=== PATIENT | male | born 1985 | race Two or more races ===

== ENCOUNTER 2020-12-15 15:41 | Inpatient (IN) | payer OTHER ==
[~2020-12-15] VITALS: Ht 185.4 cm; Wt 117.8 kg
[2020-12-15] MEDS ORDERED: SODIUM CHLORIDE 0.9% 1,000 ML IV ONE (16:00)
[2020-12-15 16:59] LABS: Basophils # (auto) 0.1 10 ^3/uL (0-0.2); Basophils % (auto) 1.4 % (0.0-2.0); Eosinophils # (auto) 0.1 10 ^3/uL (0-0.8); Eosinophils % (auto) 1.4 % (0.0-7.0); Hematocrit 43.8 % (41.0-53.0); Lymphocytes # (auto) 1.9 10 ^3/uL (0.4-5.4); Lymphocytes % (auto) 20.1 % (10.0-50.0); Mean Corpuscular Hemoglobin 27.9 pg (28.0-32.0); Mean Corpuscular Hgb Conc. 34.2 g/dL (32.0-36.0); Mean Corpuscular Volume 81.5 fL (80.0-100.0); Monocytes # (auto) 1.1 10 ^3/uL (0-1.3); Monocytes % (auto) 12.1 % (0.0-12.0); Neutrophils # (auto) 6.1 10 ^3/uL (1.6-8.6); Nucleated Red Blood Cells % 0.1 %; Platelet Count (auto) 315 10^3/uL (140-450); Red Blood Cells 5.37 10^6/uL (4.5-5.90); Red Cell Distribution Width 14.9 % (11.8-14.3); White Blood Cell 9.4 10^3/uL (4.4-10.8)
[2020-12-15 17:14] LABS: Alanine Aminotransferase 59 U/L (16-61); Albumin 3.9 g/dL (3.4-5.0); Anion Gap 5 (5-15); Blood Urea Nitrogen 19 mg/dL (7-18); Calcium 8.7 mg/dL (8.5-10.1); Carbon Dioxide 26 mmol/L (21-32); Chloride 105 mmol/L (98-107); Glucose 82 mg/dL (74-106); Potassium 4.1 mmol/L (3.5-5.1); Sodium 136 mmol/L (136-145)
[2020-12-15 17:19] LABS: Alkaline Phosphatase 99 U/L (45-117); Aspartate Aminotransferase 27 U/L (15-37); BUN/Creatinine Ratio 15.7; Bilirubin, Total 0.3 mg/dL (0.2-1.0); GFR African American 88 mL/min; GFR Non-African American 73 mL/min; Total Protein 8.9 g/dL (6.4-8.2)
[2020-12-15 17:49] LABS: INR 1.25 (0.9-1.15); Partial Thromboplastin Time 29.4 sec (23.0-31.2)
[2020-12-15] MEDS ORDERED: IOHEXOL 350 MG/ML 100ML IJ ONE (18:39)
[2020-12-15] MEDS ORDERED: ENOXAPARIN SOD 100 MG/1 ML SYRINGE SC SCH (22:00)
[2020-12-15] MEDS: traMADol HCL 50 MG TAB PO PRN (22:43)
[2020-12-15] MEDS: ENOXAPARIN SOD 120 MG/0.8 ML SYRINGE SC SCH (23:44)
[2020-12-16] MEDS: traMADol HCL 50 MG TAB PO PRN (05:04)
[2020-12-16 06:33] LABS: Basophils # (auto) 0 10 ^3/uL (0-0.2); Basophils % (auto) 0.3 % (0.0-2.0); Eosinophils # (auto) 0.1 10 ^3/uL (0-0.8); Eosinophils % (auto) 1.5 % (0.0-7.0); Hematocrit 42.6 % (41.0-53.0); Hemoglobin 14.4 g/dL (13.5-17.5); Lymphocytes % (auto) 28.5 % (10.0-50.0); Mean Corpuscular Hemoglobin 27.6 pg (28.0-32.0); Mean Corpuscular Hgb Conc. 33.7 g/dL (32.0-36.0); Monocytes # (auto) 0.9 10 ^3/uL (0-1.3); Monocytes % (auto) 12.8 % (0.0-12.0); Neutrophils % (auto) 56.9 % (37.0-80.0); Nucleated Red Blood Cells % 0.2 %; Platelet Count (auto) 302 10^3/uL (140-450); Red Cell Distribution Width 14.5 % (11.8-14.3)
[2020-12-16 06:43] LABS: INR 1.25 (0.9-1.15); Partial Thromboplastin Time 34.2 sec (23.0-31.2)
[2020-12-16] MEDS: VENLAFAXINE HCL 37.5mg XR cap PO SCH (09:19)
[2020-12-16] MEDS: POTASSIUM CHL 20 Meq TABLET PO SCH (09:20)
[2020-12-16] MEDS: FUROSEMIDE 20 MG TAB PO SCH (09:20)
[2020-12-16] MEDS: ENOXAPARIN SOD 120 MG/0.8 ML SYRINGE SC SCH ×2 (09:21→22:12)
[2020-12-16] MEDS: MIRTAZAPINE 30 MG TAB PO SCH (09:26)
[2020-12-16] MEDS: HYDROcodone-ACET 10/325MG TAB PO PRN (10:06)
[2020-12-16 22:00] VITALS: BP 109/70
[2020-12-17] MEDS: HYDROcodone-ACET 10/325MG TAB PO PRN (00:16)
[2020-12-17 01:32] VITALS: BP 109/70
[2020-12-17 05:00] VITALS: BP 107/81
[2020-12-17 09:00] VITALS: BP 104/60
[2020-12-17] MEDS: APIXABAN 5 MG TAB PO SCH ×2 (11:31→22:28)
[2020-12-17] MEDS: MIRTAZAPINE 30 MG TAB PO SCH (11:32)
[2020-12-17] MEDS: POTASSIUM CHL 20 Meq TABLET PO SCH (11:32)
[2020-12-17] MEDS: VENLAFAXINE HCL 37.5mg XR cap PO SCH (11:32)
[2020-12-17] MEDS: FUROSEMIDE 20 MG TAB PO SCH (11:52)
[2020-12-17 12:55] VITALS: BP 112/71
[2020-12-17 16:52] VITALS: BP 116/69
[2020-12-17 22:00] VITALS: BP 107/67
[2020-12-18] MEDS: HYDROcodone-ACET 10/325MG TAB PO PRN (00:15)
[2020-12-18 05:00] VITALS: BP 124/66
[2020-12-18] MEDS ORDERED: WARF5TAB71 PO (06:37)
[2020-12-18] MEDS ORDERED: FURO1TAB31 PO (06:38)
[2020-12-18] MEDS ORDERED: POTA10TA51 PO (06:41)
[2020-12-18] MEDS ORDERED: VENL75CA3 PO (06:42)
[2020-12-18] MEDS ORDERED: MIRT-66 OR (06:42)
[2020-12-18 07:32] LABS: Basophils # (auto) 0.1 10 ^3/uL (0-0.2); Basophils % (auto) 1.9 % (0.0-2.0); Eosinophils # (auto) 0.1 10 ^3/uL (0-0.8); Eosinophils % (auto) 2.3 % (0.0-7.0); Hematocrit 39.9 % (41.0-53.0); Hemoglobin 13.5 g/dL (13.5-17.5); Lymphocytes # (auto) 1.7 10 ^3/uL (0.4-5.4); Lymphocytes % (auto) 34.7 % (10.0-50.0); Mean Corpuscular Hemoglobin 27.8 pg (28.0-32.0); Mean Corpuscular Hgb Conc. 33.9 g/dL (32.0-36.0); Monocytes # (auto) 0.7 10 ^3/uL (0-1.3); Neutrophils # (auto) 2.2 10 ^3/uL (1.6-8.6); Neutrophils % (auto) 46.1 % (37.0-80.0); Nucleated Red Blood Cells % 0.1 %; Platelet Count (auto) 273 10^3/uL (140-450); Red Blood Cells 4.86 10^6/uL (4.5-5.90); Red Cell Distribution Width 14.7 % (11.8-14.3); White Blood Cell 4.8 10^3/uL (4.4-10.8)
[2020-12-18 07:45] LABS: INR 1.09 (0.9-1.15); Partial Thromboplastin Time 29.4 sec (23.0-31.2)
[2020-12-18 08:00] VITALS: BP 115/75
[2020-12-18] MEDS: APIXABAN 5 MG TAB PO SCH ×2 (09:24→22:03)
[2020-12-18] MEDS: VENLAFAXINE HCL 37.5mg XR cap PO SCH (09:24)
[2020-12-18] MEDS: FUROSEMIDE 20 MG TAB PO SCH (09:25)
[2020-12-18] MEDS: POTASSIUM CHL 20 Meq TABLET PO SCH (09:25)
[2020-12-18] MEDS: MIRTAZAPINE 30 MG TAB PO SCH (09:25)
[2020-12-18 12:00] VITALS: BP 120/61
[2020-12-18] MEDS ORDERED: APIX5TAB PO (12:23)
[2020-12-18 17:00] VITALS: BP 109/63
[2020-12-18 22:00] VITALS: BP 114/68
[2020-12-18 22:20] LABS: Urine Bacteria NONE SEEN /hpf (None Seen); Urine Blood Negative /uL (Negative); Urine Mucus FEW (None Seen); Urine WBC 1 /hpf (0 - 3)
[2020-12-19 05:30] VITALS: BP 107/64
[2020-12-19 08:00] VITALS: BP 110/56
[2020-12-19] MEDS: VENLAFAXINE HCL 37.5mg XR cap PO SCH (10:06)
[2020-12-19] MEDS: APIXABAN 5 MG TAB PO SCH ×2 (10:06→22:00)
[2020-12-19] MEDS: MIRTAZAPINE 30 MG TAB PO SCH (10:07)
[2020-12-19] MEDS: POTASSIUM CHL 20 Meq TABLET PO SCH (10:07)
[2020-12-19] MEDS: FUROSEMIDE 20 MG TAB PO SCH (10:07)
[2020-12-19 12:00] VITALS: BP 107/63
[2020-12-19 17:15] VITALS: BP 107/63
[2020-12-19 17:19] VITALS: BP 120/64
== END 2020-12-19 22:00 | DRG 204 ==
LOC: ER 15:41 → EEVIPCON 15:41 → OVERFLOW 21:50 → EAST 12-16 20:35
PROVIDERS: ADMIT Internal Medicine; ATTEND Internal Medicine
DX: R04.2 Hemoptysis (principal); R71.0 Precipitous drop in hematocrit; I82.501 Chronic embolism and thrombosis of unspecified deep veins of right lower extremity; F12.90 Cannabis use, unspecified, uncomplicated; Z86.711 Personal history of pulmonary embolism; Z79.01 Long term (current) use of anticoagulants; F32.9 Major depressive disorder, single episode, unspecified; F41.9 Anxiety disorder, unspecified; Z20.822 Contact with and (suspected) exposure to COVID-19
CPT/HCPCS: 36415; 71275; 80053; 81001; 81241; 83516; 84484; 85025; 85301; 85302; 85305; 85306; 85379; 85610; 85652; 85730; 86225; 86235; 86431; 87081; 87086; 87426; 93970; 96360; G0378